=== PATIENT | female | born 1950 | race Caucasian/White ===

== ENCOUNTER 2017-05-05 16:13 | Emergency (ER) | payer BC, OTHER ==
[~2017-05-05] VITALS: Ht 154.9 cm; Wt 70.0 kg
[~2017-05-05 16:13] MED LIST: AMIT50TA3 PO; BOTO200I I-DERMAL; CETI-14 PO; GLUC1CAP16 PO; LEXA10TA PO; MULT-4 PO
[2017-05-05 16:21] VITALS: BP 103/58; PULSE 81; RESP 18; TEMP 98.7; O2SAT 95
--- NOTE | 2017-05-05 16:53 | PD ---
HPI Chief Complaint: Psychiatric Symptoms Time Seen by Provider: 16:40 Travel History International Travel<30 days: No Contact w/Intl Traveler<30days: No Traveled to known affect area: No History of Present Illness HPI 66-year-old female presents to the emergency room under Quinonez act initiated by police. According to Quinonez act, patient text that her friend and told her that she had taken rum with #7 #7 clonazepam earlier today after she and her got into an argument. Patient states she did so in order to sleep for 4 hours. Denies suicidal or homicidal ideation. Denies hallucinations or delusions. She denies any psychiatric disease. She was just recently put on blood pressure occasion by her neurologist. Denies any medical complaints at this time. PFSH Past Medical History Cancer: No Cardiovascular Problems: No Diabetes: No Endocrine: No Genitourinary: No Hepatitis: No Hiatal Hernia: No Immune Disorder: No Musculoskeletal: No Neurologic: Yes (MIGRAINES) Psychiatric: Yes (ANXIETY AND DEPRESSION) Reproductive: Yes (VULVAR LESION) Respiratory: No Thyroid Disease: No Past Surgical History Abdominal Surgery: Yes (CHOLECYSTECTOMY) Body Medical Devices: NONE Gynecologic Surgery: Yes (HYSTERECTOMY; EXCISION VULVAR LESION MAY 2014) Hysterectomy: Yes (1998) Other Surgery: Yes Social History Alcohol Use: Yes Tobacco Use: No Substance Use: No Allergies-Medications (Allergen,Severity, Reaction): Coded Allergies: No Known Allergies (Unverified Adverse Reaction, Unknown, 05/05/17) Reported Meds & Prescriptions Reported Meds & Active Scripts Active Reported Botox Inj (Onabotulinumtoxina) 200 Unit Inj 190 Units I-DERMAL EVERY 3 WEEKS Glucosamine Chondroitin (Ezaplsnnhjy-Icpkokrmwtl-Pod C-) 1 Cap Cap 2 Cap PO DAILY Vitalee (Multiple Vitamin) 1 Tab Tab 1 Tab PO DAILY Zyrtec (Cetirizine HCl) 10 Mg Tab.rapdis 1 Tab PO PRN Lexapro (Escitalopram Oxalate) 10 Mg Tab 10 Mg PO DAILY Review of Systems Except as stated in HPI: all other systems reviewed are Neg Physical Exam Narrative GENERAL: Well-nourished, well-developed female in no acute distress. Afebrile. Ambulatory. SKIN: Focused skin assessment warm/dry. HEAD: Normocephalic. EYES: No scleral icterus. No injection or drainage. NECK: Supple, trachea midline. No JVD or lymphadenopathy. CARDIOVASCULAR: Regular rate and rhythm without murmurs, gallops, or rubs. RESPIRATORY: Breath sounds equal bilaterally. No accessory muscle use. PSYCHIATRIC: No delusional thought processes. No hallucinations. Data Data Last Documented VS Vital Signs Date Time Temp Pulse Resp B/P (MAP) Pulse Ox O2 Delivery O2 Flow Rate FiO2 05/05/17 16:21 98.7 81 18 103/58 (73) 95 Orders Orders Complete Blood Count With Diff (05/05/17 16:50) Basic Metabolic Panel (Bmp) (05/05/17 16:50) Urinalysis - C+S If Indicated (05/05/17 16:50) Psych Screen (05/05/17 16:50) Drug Screen, Random Urine (05/05/17 16:50) Alcohol (Ethanol) (05/05/17 16:50) Salicylates (Aspirin) (05/05/17 16:50) Tylenol (Acetaminophen) (05/05/17 16:50) Olanzapine Inj (Zyprexa Inj) (05/05/17 18:11) Labs Laboratory Tests Test 05/05/17 17:00 05/05/17 17:05 Urine Opiates Screen NEG Urine Barbiturates Screen NEG Urine Amphetamines Screen NEG Urine Benzodiazepines Screen POS Urine Cocaine Screen NEG Urine Cannabinoids Screen NEG White Blood Count 7.0 TH/MM3 Red Blood Count 4.87 MIL/MM3 Hemoglobin 14.7 GM/DL Hematocrit 43.2 % Mean Corpuscular Volume 88.7 FL Mean Corpuscular Hemoglobin 30.2 PG Mean Corpuscular Hemoglobin Concent 34.1 % Red Cell Distribution Width 13.9 % Platelet Count 235 TH/MM3 Mean Platelet Volume 8.2 FL Neutrophils (%) (Auto) 49.0 % Lymphocytes (%) (Auto) 38.0 % Monocytes (%) (Auto) 9.1 % Eosinophils (%) (Auto) 2.9 % Basophils (%) (Auto) 1.0 % Neutrophils # (Auto) 3.4 TH/MM3 Lymphocytes # (Auto) 2.7 TH/MM3 Monocytes # (Auto) 0.6 TH/MM3 Eosinophils # (Auto) 0.2 TH/MM3 Basophils # (Auto) 0.1 TH/MM3 CBC Comment DIFF FINAL Differential Comment Urine Color LIGHT-YELLOW Urine Turbidity CLEAR Urine pH 5.0 Urine Specific [place] 1.004 Urine Protein NEG mg/dL Urine Glucose (UA) NEG mg/dL Urine Ketones NEG mg/dL Urine Occult Blood NEG Urine Nitrite NEG Urine Bilirubin NEG Urine Urobilinogen LESS THAN 2.0 MG/DL Urine Leukocyte Esterase NEG Urine WBC LESS THAN 1 /hpf Urine Squamous Epithelial Cells <1 /hpf Urine Bacteria OCC /hpf Microscopic Urinalysis Comment CULT NOT INDICATED Blood Urea Nitrogen 19 MG/DL Creatinine 0.89 MG/DL Random Glucose 84 MG/DL Calcium Level 8.9 MG/DL Sodium Level 139 MEQ/L Potassium Level 4.1 MEQ/L Chloride Level 106 MEQ/L Carbon Dioxide Level 26.4 MEQ/L Anion Gap 7 MEQ/L Estimat Glomerular Filtration Rate 64 ML/MIN Salicylates Level LESS THAN 1.7 MG/DL Acetaminophen Level LESS THAN 2.0 MCG/ML Ethyl Alcohol Level 21 MG/DL MDM Medical Decision Making Medical Screen Exam Complete: Yes Emergency Medical Condition: Yes Medical Record Reviewed: Yes Differential Diagnosis Depression, mood disorder, substance induced mood disorder, suicidal ideation Narrative Course 66-year-old female presents to the emergency room after being Quinonez acted by police department. According to report, patient took #7 clonazepam and rum earlier today. She states she did it so she could sleep several hours after fighting with her . Denies any medical complaints at this time. CBC and BMP are completely unremarkable. UA shows no signs of infection. Vital signs stable. Patient is medically cleared for psychiatric evaluation Condition: Stable Haleigh Rousseau May 05, 2017 16:53
[2017-05-05 17:31] LABS: AUTOMATED NEUTROPHIL # 3.4 TH/MM3 (1.8-7.7); BASOPHIL # 0.1 TH/MM3 (0-0.2); EOSINOPHIL # 0.2 TH/MM3 (0-0.4); EOSINOPHIL % 2.9 % (0.0-4.0); HEMATOCRIT 43.2 % (35.0-46.0); HEMO FLAGS DIFF FINAL; LYMPHOCYTE # 2.7 TH/MM3 (1.0-4.8); MEAN CELL VOLUME 88.7 FL (80.0-100.0); MEAN CORPUSCULAR HEMOGLOBIN 30.2 PG (27.0-34.0); MEAN CORPUSCULAR HGB CONC 34.1 % (32.0-36.0); MONO % 9.1 % (0.0-8.0); PLATELET COUNT 235 TH/MM3 (150-450); RED BLOOD COUNT 4.87 MIL/MM3 (4.00-5.30); RED CELL DISTRIBUTION WIDTH 13.9 % (11.6-17.2)
[2017-05-05 17:37] LABS: BACTERIA, URINE OCC /hpf; BLOOD, URINE NEG (NEG); COMMENT (UR) CULT NOT INDICATED; CULTURE IF INDICATED CULT NOT INDICATED; GLUCOSE,URINE NEG (NEG); KETONE, URINE NEG (NEG); NITRITE,URINE NEG (NEG); SQUAMOUS EPITHELIAL CELL URINE <1 /hpf (0-5); URINE COLOR LIGHT-YELLOW (YELLW/STRAW)
[2017-05-05 17:57] LABS: ANION GAP 7 MEQ/L (5-15); BICARBONATE 26.4 MEQ/L (21.0-32.0); BLOOD UREA NITROGEN 19 MG/DL (7-18); CHLORIDE 106 MEQ/L (98-107); GLOMERULAR FILTRATION RATE 64 ML/MIN (>89); POTASSIUM 4.1 MEQ/L (3.5-5.1); SODIUM (NA) 139 MEQ/L (136-145)
[2017-05-05 18:00] LABS: ALCOHOL 21 MG/DL (0-5)
[2017-05-05 18:01] LABS: ACETAMINOPHEN LESS THAN 2.0 MCG/ML (10.0-30.0)
[2017-05-05] MEDS ORDERED: OLANZapine IM 10 MG VIAL IM ONE (18:11)
--- NOTE | 2017-05-05 22:19 | PD ---
History of Present Illness Chief Complaint: Psychiatric Symptoms Time Seen by Provider: 21:30 Travel History International Travel<30 Days: No Contact w/Intl Traveler<30days: No Known affected area: No Legal Status Legal Status: Quinonez Act Quinonez Act Signed By: Gwyn Worthington Quinonez Act Comment: 2016 @ 1521 History of Present Illness: History of Present Illness HPI 66-year-old female with history of anxiety and depression who presents to the emergency room under Quinonez act initiated by police. The Quinonez act alleges that the patient sent a text message to her friend and told her that she had taken rum with #7 Klonopin 0.25 mg earlier today. This in context of an argument with her . Patient states she did so in order to sleep and not to kill herself. She states that her travels for work and she is having a hard time when he chooses to take a work assignment versus choosing to stay at home with her. EMR reviewed. No previous contact with [facility]. Patient is seen. She is alert, oriented, calm and cooperative. Speech is clear and logical, normal rate and rhythm. No psychosis, no marcus and no hypomania. Mood is anxious. She denies any suicdal or homicidal ideation, intent or plan. She reports that she was upset at her and that she just wanted to sleep for some hours. She denies that she drinks on a daily basis. PFSH Past Medical History Cancer: No Cardiovascular Problems: No Diabetes: No Endocrine: No Genitourinary: No Hepatitis: No Hiatal Hernia: No Immune Disorder: No Musculoskeletal: No Neurologic: Yes (MIGRAINES) Psychiatric: Yes (ANXIETY AND DEPRESSION) Reproductive: Yes (VULVAR LESION) Respiratory: No Thyroid Disease: No Past Surgical History Abdominal Surgery: Yes (CHOLECYSTECTOMY) Body Medical Devices: NONE Gynecologic Surgery: Yes (HYSTERECTOMY; EXCISION VULVAR LESION MAY 2014) Hysterectomy: Yes (1998) Other Surgery: Yes Psychiatric History Psychiatric History Hx Psychiatric Treatment: Has been tretaed for anxiety and depression. Is a patient of Dr. Yenni Winkler. One previous psychiatric hospitalization many years ago after she experienced a panic attack. History of Inpatient Treatment: Yes Guns or firearms in home: No Social History Born and raised in [facility]. Moved to [place] in 2007. Has been for 42 years. Has 1 daughter and a son. 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 Denies any history of abuse. No legal history. Hx Alcohol Use: Yes Hx Tobacco Use: No Hx Substance Use: No Substance Use Type: Alcohol (reports drinks very seldom.) Hx of Substance Use Treatment: No Family Psychiatric History Mother with history of depression. Sister With history of depression as well. Allergies-Medications (Allergen,Severity, Reaction): Coded Allergies: No Known Allergies (Unverified Adverse Reaction, Unknown, 05/05/17) Reported Meds & Prescriptions Reported Meds & Active Scripts Active Reported Botox Inj (Onabotulinumtoxina) 200 Unit Inj 190 Units I-DERMAL EVERY 3 WEEKS Glucosamine Chondroitin (Ficbblpzvzz-Jxlomagtkwn-Aro C-) 1 Cap Cap 2 Cap PO DAILY Vitalee (Multiple Vitamin) 1 Tab Tab 1 Tab PO DAILY Zyrtec (Cetirizine HCl) 10 Mg Tab.rapdis 1 Tab PO PRN Lexapro (Escitalopram Oxalate) 10 Mg Tab 10 Mg PO DAILY Review of Systems Psychiatric: COMPLAINS OF: Anxiety Except as stated in HPI: all other systems reviewed are Neg Mental Status Examination Appearance: Appropriate Consciousness: Alert Orientation: x4 Motor Activity: Normal gait Speech: Unremarkable Language: Adequate Fund of Knowledge: Adequate Attention and Concentration: Adequate Memory: Unremarkable Mood: Appropriate, Anxious Affect: Appropriate Thought Process & Associations: Intact Thought Content: Appropriate Hallucination Type: None Delusion Type: None Suicidal Ideation: No Suicidal Plan: No Suicidal Intention: No Homicidal Ideation: No Homicidal Plan: No Homicidal Intention: No Insight: Fair Judgment: Impulsive MDM Medical Decision Making Medical Record Reviewed: Yes Assessment/Plan 66-year-old female with history of depression and anxiety who in context of having an argument with her because he decided to go away for work she took # 7 0.25 mg of Klonopin with some alcohol with the intent to fall asleep. The patient denies that this was a suicidal attempt. She denies that she wants to harm herself. She is future oriented and talks in about her daughter who will be getting in the near future. She also talks about her and that she wants to be more involved in volunteer work as well. The patient is currently in treatment and has a good relationship with her outpatient psychiatrist Dr. Winkler. Patient is requesting to be discharged and she does not present criteria for inpatient psychiatric treatment. She does not meet criteria for Quinonez act. Extensive psychoeducation and support is provided. The patient contracts for safety. She is cognitively intact. The Quinonez act is lifted. She will follow-up with her outpatient psychiatrist. Orders Orders Complete Blood Count With Diff (05/05/17 16:50) Basic Metabolic Panel (Bmp) (05/05/17 16:50) Urinalysis - C+S If Indicated (05/05/17 16:50) Psych Screen (05/05/17 16:50) Drug Screen, Random Urine (05/05/17 16:50) Alcohol (Ethanol) (05/05/17 16:50) Salicylates (Aspirin) (05/05/17 16:50) Tylenol (Acetaminophen) (05/05/17 16:50) Olanzapine Inj (Zyprexa Inj) (05/05/17 18:11) Results Vital Signs Date Time Temp Pulse Resp B/P (MAP) Pulse Ox O2 Delivery O2 Flow Rate FiO2 05/05/17 16:21 98.7 81 18 103/58 (73) 95 Laboratory Tests Test 05/05/17 17:00 05/05/17 17:05 Urine Opiates Screen NEG Urine Barbiturates Screen NEG Urine Amphetamines Screen NEG Urine Benzodiazepines Screen POS Urine Cocaine Screen NEG Urine Cannabinoids Screen NEG White Blood Count 7.0 Red Blood Count 4.87 Hemoglobin 14.7 Hematocrit 43.2 Mean Corpuscular Volume 88.7 Mean Corpuscular Hemoglobin 30.2 Mean Corpuscular Hemoglobin Concent 34.1 Red Cell Distribution Width 13.9 Platelet Count 235 Mean Platelet Volume 8.2 Neutrophils (%) (Auto) 49.0 Lymphocytes (%) (Auto) 38.0 Monocytes (%) (Auto) 9.1 Eosinophils (%) (Auto) 2.9 Basophils (%) (Auto) 1.0 Neutrophils # (Auto) 3.4 Lymphocytes # (Auto) 2.7 Monocytes # (Auto) 0.6 Eosinophils # (Auto) 0.2 Basophils # (Auto) 0.1 CBC Comment DIFF FINAL Differential Comment Urine Color LIGHT-YELLOW Urine Turbidity CLEAR Urine pH 5.0 Urine Specific [place] 1.004 Urine Protein NEG Urine Glucose (UA) NEG Urine Ketones NEG Urine Occult Blood NEG Urine Nitrite NEG Urine Bilirubin NEG Urine Urobilinogen LESS THAN 2.0 Urine Leukocyte Esterase NEG Urine WBC LESS THAN 1 Urine Squamous Epithelial Cells <1 Urine Bacteria OCC Microscopic Urinalysis Comment CULT NOT INDICATED Blood Urea Nitrogen 19 Creatinine 0.89 Random Glucose 84 Calcium Level 8.9 Sodium Level 139 Potassium Level 4.1 Chloride Level 106 Carbon Dioxide Level 26.4 Anion Gap 7 Estimat Glomerular Filtration Rate 64 Salicylates Level LESS THAN 1.7 Acetaminophen Level LESS THAN 2.0 Ethyl Alcohol Level 21 Diagnosis Primary Impression: Adjustment disorder with anxious mood Psychiatrically Cleared: Yes Med/ Other Pt Specific Info: No Change to Meds Disposition: 01 DISCHARGE HOME Condition: Stable Tonya Hirsch May 05, 2017 22:19
--- NOTE | 2017-05-05 22:35 | PD ---
Physical Exam Date Seen by Provider: May 05, 2017 Time Seen by Provider: 22:33 Narrative For full history and physical examination please previous provider's note. Data Data Last Documented VS Vital Signs Date Time Temp Pulse Resp B/P (MAP) Pulse Ox O2 Delivery O2 Flow Rate FiO2 05/05/17 16:21 98.7 81 18 103/58 (73) 95 Orders Orders Complete Blood Count With Diff (05/05/17 16:50) Basic Metabolic Panel (Bmp) (05/05/17 16:50) Urinalysis - C+S If Indicated (05/05/17 16:50) Psych Screen (05/05/17 16:50) Drug Screen, Random Urine (05/05/17 16:50) Alcohol (Ethanol) (05/05/17 16:50) Salicylates (Aspirin) (05/05/17 16:50) Tylenol (Acetaminophen) (05/05/17 16:50) Olanzapine Inj (Zyprexa Inj) (05/05/17 18:11) Labs Laboratory Tests Test 05/05/17 17:00 05/05/17 17:05 Urine Opiates Screen NEG Urine Barbiturates Screen NEG Urine Amphetamines Screen NEG Urine Benzodiazepines Screen POS Urine Cocaine Screen NEG Urine Cannabinoids Screen NEG White Blood Count 7.0 TH/MM3 Red Blood Count 4.87 MIL/MM3 Hemoglobin 14.7 GM/DL Hematocrit 43.2 % Mean Corpuscular Volume 88.7 FL Mean Corpuscular Hemoglobin 30.2 PG Mean Corpuscular Hemoglobin Concent 34.1 % Red Cell Distribution Width 13.9 % Platelet Count 235 TH/MM3 Mean Platelet Volume 8.2 FL Neutrophils (%) (Auto) 49.0 % Lymphocytes (%) (Auto) 38.0 % Monocytes (%) (Auto) 9.1 % Eosinophils (%) (Auto) 2.9 % Basophils (%) (Auto) 1.0 % Neutrophils # (Auto) 3.4 TH/MM3 Lymphocytes # (Auto) 2.7 TH/MM3 Monocytes # (Auto) 0.6 TH/MM3 Eosinophils # (Auto) 0.2 TH/MM3 Basophils # (Auto) 0.1 TH/MM3 CBC Comment DIFF FINAL Differential Comment Urine Color LIGHT-YELLOW Urine Turbidity CLEAR Urine pH 5.0 Urine Specific [place] 1.004 Urine Protein NEG mg/dL Urine Glucose (UA) NEG mg/dL Urine Ketones NEG mg/dL Urine Occult Blood NEG Urine Nitrite NEG Urine Bilirubin NEG Urine Urobilinogen LESS THAN 2.0 MG/DL Urine Leukocyte Esterase NEG Urine WBC LESS THAN 1 /hpf Urine Squamous Epithelial Cells <1 /hpf Urine Bacteria OCC /hpf Microscopic Urinalysis Comment CULT NOT INDICATED Blood Urea Nitrogen 19 MG/DL Creatinine 0.89 MG/DL Random Glucose 84 MG/DL Calcium Level 8.9 MG/DL Sodium Level 139 MEQ/L Potassium Level 4.1 MEQ/L Chloride Level 106 MEQ/L Carbon Dioxide Level 26.4 MEQ/L Anion Gap 7 MEQ/L Estimat Glomerular Filtration Rate 64 ML/MIN Salicylates Level LESS THAN 1.7 MG/DL Acetaminophen Level LESS THAN 2.0 MCG/ML Ethyl Alcohol Level 21 MG/DL MDM Medical Record Reviewed: Yes Supervised Visit with [place]: No Narrative Course Patient is a 66-year-old female that was brought to emergency Department under Quinonez act suicidal ideations. Patient was seen and evaluated in the emergency department, she was medically cleared. She was then seen and evaluated by Tonya WALSH, psychiatric nurse practitioner. And she stated "She does not meet criteria for Quinonez act. Extensive psychoeducation and support is provided. The patient contracts for safety. She is cognitively intact. The Quinonez act is lifted. She will follow-up with her outpatient psychiatrist." Patient will be discharged home again for follow-up with her outpatient psychiatrist. Diagnosis Primary Impression: Adjustment disorder with anxious mood Referrals: Psychiatrist 1 day Patient Instructions: General Instructions Additional Instruction: Follow-up with her psychiatrist Return to emergency department immediately for any new or worsening symptoms Med/Other Pt SpecificInfo: No Change to Meds Disposition: 01 DISCHARGE HOME Condition: Stable Flakita Lunsford May 05, 2017 22:35
== END 2017-05-05 22:48 | disposition home or self-care (01) ==
LOC: NEPD 16:13 → NEPJ 22:48
DX: F43.22 Adjustment disorder with anxiety (principal); Z79.899 Other long term (current) drug therapy
CPT/HCPCS: 80048; 80307; 81001; 85025; 96372